=== PATIENT | female | born 1935 | race Caucasian/White ===

== ENCOUNTER 2021-12-27 21:53 | Emergency (ER) | payer MEDICARE ==
[~2021-12-27] VITALS: Wt 81.6 kg
[2021-12-27 22:58] LABS: CREATININE 1.07 mg/dL (0.55-1.02); POTASSIUM 4.5 mmol/L (3.5-5.1); TOTAL PROTEIN 6.2 gm/dL (6.4-8.2)
[2021-12-28 00:53] LABS: BASO % 0.2 % (0.0-1.0); EOS % 0.2 % (1.0-4.0); HEMATOCRIT 37.9 % (37.0-47.0); LYMPH # 0.8 10*3/uL (1.3-4.4); MEAN CELL VOLUME 94.5 fl (81.0-99.0); MEAN CORPUSCULAR HGB 30.9 pg (27.0-31.0); MEAN CORPUSCULAR HGB CONC 32.7 g/dl (33.0-37.0); MEAN PLATELET VOLUME 9.6 fl (9.6-12.3); MONO # 0.6 10*3/uL (0.1-1.0); MONO % 6.4 % (3.0-9.0); NEUT % 84.8 % (47.0-73.0); PLATELET COUNT AUTOMATED 258 10*3/uL (130-400); RED BLOOD COUNT 4.01 10*6/uL (4.10-5.10); RED CELL DISTRI WIDTH 14.6 % (0-14.5); WHITE BLOOD COUNT 9.4 10*3/uL (4.8-10.8)
[2021-12-28 01:07] LABS: ACT PARTIAL THROMBO TIME 21.8 SECONDS (20.0-32.1)
== END 2021-12-28 02:34 | disposition home or self-care (01) ==
LOC: ED 21:53
PROVIDERS: Family Medicine
DX: R41.82 Altered mental status, unspecified (principal); Z20.822 Contact with and (suspected) exposure to COVID-19

== ENCOUNTER 2022-10-19 15:31 | Emergency (ER) | payer MEDICARE ==
[~2022-10-19] VITALS: Ht 157.4 cm; Wt 73.0 kg
[~2022-10-19 15:31] MED LIST: CARDIZEM CD120 M2 PO; DICYCLOMINE HCL10 MG PO; ENSURE LIQUID237 ML PO; KEPPRA250 MG PO; KEPPRA500 MG PO; LEVOTHYROXINE75 MCG PO; LOPRESSOR25 MG PO; MIRTAZAPINE15 M2 PO; POTASSIUM CHLO10 ME5 PO; PROTONIX TR40 M1 PO; SENNA LAX8.6 M1 PO; SIMVASTATIN20 MG PO; TRAZODONE50 MG PO; VITAMIN D325 MCG PO
[2022-10-19 16:32] LABS: BASO % 0.6 % (0.0-1.0); EOS # 0.1 10*3/uL (0.0-0.4); EOS % 2.5 % (1.0-4.0); HEMATOCRIT 38.9 % (37.0-47.0); LYMPH # 1.3 10*3/uL (1.3-4.4); MEAN CELL VOLUME 92.8 fl (81.0-99.0); MEAN CORPUSCULAR HGB 29.8 pg (27.0-31.0); MEAN CORPUSCULAR HGB CONC 32.1 g/dl (33.0-37.0); MEAN PLATELET VOLUME 9.2 fl (9.6-12.3); MONO # 0.4 10*3/uL (0.1-1.0); MONO % 7.5 % (3.0-9.0); NEUT # 3.3 10*3/uL (2.3-7.9); NEUT % 64.2 % (47.0-73.0); PLATELET COUNT AUTOMATED 245 10*3/uL (130-400); RED BLOOD COUNT 4.19 10*6/uL (4.10-5.10); RED CELL DISTRI WIDTH 14.6 % (0-14.5); WHITE BLOOD COUNT 5.2 10*3/uL (4.8-10.8)
[2022-10-19 16:54] LABS: ALKALINE PHOSPHATASE 85 U/L (46-116); BUN 15 mg/dl (9-23); CHLORIDE 107 mmol/L (98-107); POTASSIUM 4.4 mmol/L (3.4-5.1); TOTAL PROTEIN 6.8 gm/dL (6.0-8.0)
[2022-10-19 16:55] LABS: SGPT/ALT < 7 U/L (10-49)
== END 2022-10-19 18:57 | disposition home or self-care (01) ==
LOC: ED 15:31
PROVIDERS: Physician Assistant Medical
DX: M54.50 Low back pain, unspecified (principal); I10 Essential (primary) hypertension; I48.91 Unspecified atrial fibrillation; K21.9 Gastro-esophageal reflux disease without esophagitis; E03.9 Hypothyroidism, unspecified

== ENCOUNTER 2023-05-27 17:26 | Emergency (ER) | payer MEDICARE ==
[~2023-05-27] VITALS: Wt 79.4 kg
[2023-05-27] MEDS ORDERED: MORPHINE Sulfate 2 MG/ML SYR IV ONE (17:40)
[2023-05-27] MEDS ORDERED: Ondansetron Hydrochloride 4 MG/2 ML VIAL IV ONE (17:40)
[2023-05-27] MEDS ORDERED: SODIUM CHLORIDE 0.9% 1,000 ML IV ONE (17:40)
[2023-05-27 18:09] LABS: BASO % 0.3 % (0.0-1.0); EOS # 0.1 10*3/uL (0.0-0.4); EOS % 1.3 % (1.0-4.0); HEMATOCRIT 39.9 % (37.0-47.0); LYMPH # 0.9 10*3/uL (1.3-4.4); LYMPH % 14.4 % (27.0-41.0); MEAN CELL VOLUME 96.4 fl (81.0-99.0); MEAN CORPUSCULAR HGB 29.7 pg (27.0-31.0); MEAN CORPUSCULAR HGB CONC 30.8 g/dl (33.0-37.0); MEAN PLATELET VOLUME 9.4 fl (9.6-12.3); MONO # 0.6 10*3/uL (0.1-1.0); MONO % 8.7 % (3.0-9.0); NEUT # 4.8 10*3/uL (2.3-7.9); NEUT % 75.1 % (47.0-73.0); PLATELET COUNT AUTOMATED 220 10*3/uL (130-400); RED BLOOD COUNT 4.14 10*6/uL (4.10-5.10); RED CELL DISTRI WIDTH 15.3 % (0-14.5); WHITE BLOOD COUNT 6.3 10*3/uL (4.8-10.8)
[2023-05-27 18:30] LABS: ALKALINE PHOSPHATASE 82 U/L (46-116); BUN 15 mg/dl (9-23); CHLORIDE 106 mmol/L (98-107); LIPASE 32 U/L (12-53); POTASSIUM 3.9 mmol/L (3.4-5.1); TOTAL PROTEIN 6.6 gm/dL (6.0-8.0)
[2023-05-27 18:32] LABS: SGPT/ALT < 7 U/L (5-49)
[2023-05-27 21:52] LABS: BILIRUBIN Negative (Negative); BLOOD Negative (Negative); CLARITY Clear (Clear); COLOR Yellow (Yellow); GLUCOSE Negative (Negative); KETONE Trace (Negative); LEUKO ESTERASE Negative (Negative); NITRITE Negative (Negative); SPECIFIC GRAVITY 1.015 (1.001-1.030); UROBILINOGEN 0.2 E.U./dl (0.0-1.0)
[2023-05-27 22:00] LABS: MUCOUS 1+; RBC 0-2 rbc/hpf (0-2); WBC 0-2 wbc/hpf (0-5)
== END 2023-05-27 23:29 ==
LOC: ED 17:26
PROVIDERS: Emergency Medicine; Internal Medicine
DX: M54.9 Dorsalgia, unspecified (principal); K59.00 Constipation, unspecified; I10 Essential (primary) hypertension; E78.5 Hyperlipidemia, unspecified; F03.90 Unspecified dementia, unspecified severity, without behavioral disturbance, psychotic disturbance, mood disturbance, and anxiety; R11.2 Nausea with vomiting, unspecified; R19.7 Diarrhea, unspecified; I48.91 Unspecified atrial fibrillation; K21.9 Gastro-esophageal reflux disease without esophagitis

== ENCOUNTER 2023-07-08 10:54 | Inpatient (IN) | payer MEDICARE ==
[~2023-07-08] VITALS: Ht 152.4 cm; Wt 71.4 kg
[~2023-07-08 10:54] MED LIST changes: +ASPIRIN CHEWABL81 MG PO; +CLOPIDOGREL75 MG PO; +MIRALAX17 GM PO; +PAIN RELIEVER650 MG PO; +PALIPERIDONE ER3 MG PO; +ZTLIDO1 EACH TP
[2023-07-08 11:02] VITALS: BP 123/58
[2023-07-08 11:33] LABS: BASO % 0.6 % (0.0-1.0); EOS # 0.1 10*3/uL (0.0-0.4); EOS % 1.5 % (1.0-4.0); LYMPH % 14.1 % (27.0-41.0); MEAN CELL VOLUME 97.6 fl (81.0-99.0); MEAN CORPUSCULAR HGB CONC 30.7 g/dl (33.0-37.0); MONO # 0.5 10*3/uL (0.1-1.0); MONO % 6.5 % (3.0-9.0); NEUT # 5.3 10*3/uL (2.3-7.9); NEUT % 77.2 % (47.0-73.0); PLATELET COUNT AUTOMATED 270 10*3/uL (130-400); RED CELL DISTRI WIDTH 15.3 % (0-14.5); WHITE BLOOD COUNT 6.9 10*3/uL (4.8-10.8)
[2023-07-08 11:55] LABS: ALKALINE PHOSPHATASE 94 U/L (46-116); BUN 14 mg/dl (9-23); CHLORIDE 107 mmol/L (98-107); POTASSIUM 4.4 mmol/L (3.4-5.1); TOTAL PROTEIN 6.7 gm/dL (6.0-8.0)
[2023-07-08 11:56] LABS: SGPT/ALT < 7 U/L (5-49)
[2023-07-08] MEDS ORDERED: Piperacillin Sodium/Tazobact 50 ML IV ONE (12:10)
[2023-07-08 13:30] VITALS: BP 141/67
[2023-07-08 13:40] VITALS: BP 129/67
[2023-07-08] MEDS ORDERED: BISACODYL 10 MG SUPP R PRN (13:40)
[2023-07-08] MEDS ORDERED: ACETAMINOPHEN 325 MG TAB PO PRN (13:40)
[2023-07-08] MEDS ORDERED: Ondansetron Hydrochloride 4 MG/2 ML VIAL IV PRN (13:40)
[2023-07-08] MEDS ORDERED: BISACODYL 5 MG TAB PO PRN (13:40)
[2023-07-08] MEDS ORDERED: Albuterol Sulf/Ipratropium 3 ML VIAL NEB SCH (13:56)
[2023-07-08 16:00] VITALS: BP 128/78
[2023-07-08] MEDS ORDERED: TOBRAMYCIN 2.5 ML BOT OPH SCH (16:00)
[2023-07-08] MEDS ORDERED: FIBERLAX625 MG PO (16:11)
[2023-07-08] MEDS ORDERED: COL-RITE100 M1 PO (16:11)
[2023-07-08] MEDS ORDERED: HEALTHYLAX17 GM PO (16:15)
[2023-07-08] MEDS ORDERED: Dicyclomine Hydrochloride 10 MG CAP PO PRN (16:30)
[2023-07-08] MEDS ORDERED: Piperacillin Sodium/Tazobact 50 ML IV SCH (18:00)
[2023-07-08] MEDS ORDERED: POTASSIUM CHLORIDE 10 MEQ TAB PO SCH (18:00)
[2023-07-08 20:00] VITALS: BP 125/62
[2023-07-08] MEDS ORDERED: LEVETIRACETAM 500 MG TAB PO SCH (21:30)
[2023-07-08] MEDS ORDERED: Mirtazapine 15 MG TAB PO SCH (22:00)
[2023-07-08] MEDS ORDERED: SIMVASTATIN 20 MG TAB PO SCH (22:00)
[2023-07-08] MEDS ORDERED: DILTIAZEM CD 120 MG CAP PO SCH (22:00)
[2023-07-09] VITALS: BP 122/68
[2023-07-09 06:00] LABS: BUN 16 mg/dl (9-23); CHLORIDE 110 mmol/L (98-107)
[2023-07-09] MEDS ORDERED: Pantoprazole Sodium 40 MG TAB PO SCH (06:00)
[2023-07-09] MEDS ORDERED: Levothyroxine Sodium 75 MCG TAB PO SCH (06:00)
[2023-07-09 06:04] LABS: BASO % 0.5 % (0.0-1.0); EOS # 0.2 10*3/uL (0.0-0.4); EOS % 2.4 % (1.0-4.0); LYMPH % 16.1 % (27.0-41.0); MEAN CORPUSCULAR HGB 30.8 pg (27.0-31.0); MEAN CORPUSCULAR HGB CONC 32.1 g/dl (33.0-37.0); MEAN PLATELET VOLUME 9.9 fl (9.6-12.3); MONO # 0.5 10*3/uL (0.1-1.0); MONO % 8.1 % (3.0-9.0); NEUT # 4.6 10*3/uL (2.3-7.9); NEUT % 72.7 % (47.0-73.0); PLATELET COUNT AUTOMATED 222 10*3/uL (130-400); RED BLOOD COUNT 3.54 10*6/uL (4.10-5.10); RED CELL DISTRI WIDTH 15.4 % (0-14.5); WHITE BLOOD COUNT 6.3 10*3/uL (4.8-10.8)
[2023-07-09 08:00] VITALS: BP 129/58
[2023-07-09] MEDS ORDERED: LEVETIRACETAM 250 MG TAB PO SCH (09:30)
[2023-07-09] MEDS ORDERED: Enoxaparin Sodium 40 MG/0.4 ML SYR SC SCH (10:00)
[2023-07-09] MEDS ORDERED: ASPIRIN, CHEWABLE 81 MG TAB PO SCH (10:00)
[2023-07-09 12:00] VITALS: BP 136/56
[2023-07-09 13:01] LABS: BILIRUBIN Negative (Negative); BLOOD Negative (Negative); CLARITY Cloudy (Clear); COLOR Yellow (Yellow); GLUCOSE Negative (Negative); KETONE Negative (Negative); LEUKO ESTERASE Negative (Negative); NITRITE Negative (Negative); SPECIFIC GRAVITY >= 1.030 (1.001-1.030); UROBILINOGEN 0.2 E.U./dl (0.0-1.0)
[2023-07-09 13:10] LABS: BACTERIA 1+; EPITHELIAL CELLS 16-20; URIC ACID CRYSTALS 1+
[2023-07-09 16:00] VITALS: BP 114/59
[2023-07-09 20:00] VITALS: BP 135/69
[2023-07-10] VITALS: BP 116/70
[2023-07-10 08:00] VITALS: BP 102/66
[2023-07-10] MEDS ORDERED: AMOX-CLAV 875-1 EACH PO (09:20)
[2023-07-10] MEDS ORDERED: TOBRAMYCIN5 ML OPH (09:20)
== END 2023-07-10 11:30 | DRG 177 ==
LOC: ED 10:54 → EDHOLD 12:17 → 4E 13:09
PROVIDERS: Emergency Medicine; Registered Nurse; ADMIT Internal Medicine; ATTEND Internal Medicine
DX: J69.0 Pneumonitis due to inhalation of food and vomit (principal); J96.01 Acute respiratory failure with hypoxia; E44.1 Mild protein-calorie malnutrition; I48.91 Unspecified atrial fibrillation; I10 Essential (primary) hypertension; E78.5 Hyperlipidemia, unspecified; F03.90 Unspecified dementia, unspecified severity, without behavioral disturbance, psychotic disturbance, mood disturbance, and anxiety; G40.909 Epilepsy, unspecified, not intractable, without status epilepticus; K57.30 Diverticulosis of large intestine without perforation or abscess without bleeding; E03.9 Hypothyroidism, unspecified; R73.9 Hyperglycemia, unspecified; K21.9 Gastro-esophageal reflux disease without esophagitis; I25.10 Atherosclerotic heart disease of native coronary artery without angina pectoris; Z79.899 Other long term (current) drug therapy; Z79.01 Long term (current) use of anticoagulants; Z79.2 Long term (current) use of antibiotics; Z91.09 Other allergy status, other than to drugs and biological substances; Z90.49 Acquired absence of other specified parts of digestive tract; Z86.73 Personal history of transient ischemic attack (TIA), and cerebral infarction without residual deficits; Z68.30 Body mass index [BMI] 30.0-30.9, adult